=== PATIENT | female | born 1955 | race Caucasian/White ===

== ENCOUNTER 2016-10-30 18:10 | Emergency (ER) | payer OTHER ==
[2016-10-30 18:30] VITALS: BP 160/87; PULSE 78; TEMP 98.1; BMI 27.4
--- NOTE | 2016-10-30 18:40 | PDOC ---
History of Present Illness - General History Source: Patient Exam Limitations: No Limitations - History of Present Illness Initial Comments: 10/30/16 18:51 Patient is a 61 year old female with a significant past medical history of chronic back problems who presents to the ED with right lower extremity pain. Patient states that she developed right groin/ right medial thigh sharp shooting pain 10/10 that radiates down the back of her leg and to the back of her right foot. Patient states that she was recently seen an orthopedist for her right torn meniscus. She denies any recent fall or trauma. Pat PCP - Dr. Morel <Chanell Chavez - Last Filed: 10/30/16 18:51> - General History Source: Patient Exam Limitations: No Limitations <Sabine Wade - Last Filed: 10/31/16 10:52> - General Chief Complaint: Pain, Acute Stated Complaint: LEFT LEG PAIN Time Seen by Provider: 10/30/16 18:16 Past History <Chanell Chavez - Last Filed: 10/30/16 18:51> - Past Medical History Other medical history: glaucoma, back problems, herniated discs - Immunization History Td Vaccination: No - Psycho/Social/Smoking Cessation Hx Anxiety: No Suicidal Ideation: No Smoking Status: No Smoking History: Never smoked Have you smoked in the past 12 months: No Number of Cigarettes Smoked Daily: 0 Information on smoking cessation initiated: No Hx Alcohol Use: No Drug/Substance Use Hx: No Substance Use Type: None <Sabine Wade - Last Filed: 10/31/16 10:52> - Past Medical History Allergies/Adverse Reactions: Allergies Allergy/AdvReac Type Severity Reaction Status Date / Time No Known Allergies Allergy Verified 04/19/16 12:56 Home Medications: Ambulatory Orders Aspirin 81 mg PO HS 09/23/13 Bimatoprost [Lumigan] 1 drop IO HS 01/12/14 Hydrocodone/Acetaminophen [Vicodin 5-300 mg Tablet] 1 each PO QID PRN #15 tablet 01/12/14 Cyclobenzaprine HCl [Flexeril 10 mg] 10 mg PO BID PRN #30 tablet 10/30/16 Ibuprofen [Motrin -] 600 mg PO TID #20 tablet 10/30/16 Review of Systems - Review of Systems Able to Perform ROS?: Yes Comments:: 10/30/16 18:51 GENERAL/CONSTITUTIONAL: No: fever, chills, weakness, loss of appetite. HEAD, EYES, EARS, NOSE AND THROAT: No: change in vision, ear pain, discharge, sore throat, throat swelling. CARDIOVASCULAR: No: chest pain, lightheadedness, palpitations, syncope RESPIRATORY: No: cough, shortness of breath, wheezing, hemoptysis, stridor. GASTROINTESTINAL: No: nausea, vomiting, abdominal cramping, diarrhea, rectal bleeding, constipation. GENITOURINARY: No: dysuria, hematuria, frequency, urgency, flank pain. MUSCULOSKELETAL: +right LE pain No: back pain, neck pain, joint pain, muscle swelling or pain SKIN: No: lesions, pallor, rash or easy bruising. NEUROLOGIC: No: headache, vertigo, paresthesias, weakness ENDOCRINE: No: unexplained weight gain or loss HEMATOLOGIC/LYMPHATIC: No: anemia, easy bleeding, swelling nodes <Chanell Chavez - Last Filed: 10/30/16 18:51> *Physical Exam - Vital Signs Last Vital Signs Temp Pulse Resp BP Pulse Ox 98.1 F 78 18 160/87 97 10/30/16 18:10 10/30/16 18:10 10/30/16 18:10 10/30/16 18:10 10/30/16 18:10 - Physical Exam Comments: 10/30/16 18:51 GENERAL: The patient is in no acute distress. HEAD: Normal with no signs of trauma. EYES: PERRLA, EOMI, sclera anicteric, conjunctiva clear. ENT: Ears normal, nares patent, oropharynx clear without exudates. Moist mucous membranes. NECK: Normal range of motion, supple without lymphadenopathy, JVD, or masses. LUNGS: Breath sounds equal, clear to auscultation bilaterally. No wheezes, and no crackles. HEART:Regular rate and rhythm, normal S1 and S2 without murmur, rub or gallop. ABDOMEN: Soft, nontender, normoactive bowel sounds. No guarding, no rebound. EXTREMITIES: Normal range of motion, no edema. No clubbing or cyanosis. No erythema, or tenderness. NEUROLOGICAL: Cranial nerves II through XII grossly intact. Normal speech. No focal neurological deficits. MUSCULOSKELETAL: Back nontender to palpation, no CVA tenderness SKIN: Warm, Dry, normal turgor, no rashes or lesions noted. <Chanell Chavez - Last Filed: 10/30/16 18:51> - Vital Signs Last Vital Signs Temp Pulse Resp BP Pulse Ox 98.1 F 78 18 160/87 97 10/30/16 18:10 10/30/16 18:10 10/30/16 18:10 10/30/16 18:10 10/30/16 18:10 <Sabine Wade - Last Filed: 10/31/16 10:52> Medical Decision Making - Medical Decision Making 10/30/16 18:38 A portion of this note was documented by scribe services under my direction. I have reviewed the details of the note, within reason, and agree with the documentation with the following case summary and management plan written by me. Nursing documentation reviewed and incorporated into medical decision making 10/30/16 18:56 This is a 61-year-old female with a history of chronic back pain who presents emergency department with severe buttock pain which is radiating to the bottom of her foot. Patient denies falls, trauma, injury of any other kind. Patient denies heavy lifting, patient denies running. Patient states her symptoms started last night. Her pain was so severe that she took oxycodone but states it did not help her pain. She denies fevers or chills. On examination patient has no point tenderness in the hip. Patient has intermittent bouts of severe pain. Will do x-ray hip and pelvis. Will do duplex. (Patient states that she is concerned because she was told that she has a borderline positive in a, and is worried about a DVT. Will do duplex, rule out DVT. Pt given toradol and Flexeril. Pt signed out to Dr. Chen pending duplex <Sabine Wade - Last Filed: 10/31/16 10:52> *DC/Admit/Observation/Transfer - Attestations Scribe Attestion: 10/30/16 18:52 Documentation prepared by NILS Corcoran, acting as medical affairs leader for Sabine Wade MD. <Chanell Chavez - Last Filed: 10/30/16 18:51> <Sabine Wade - Last Filed: 10/31/16 10:52> Diagnosis at time of Disposition: Sciatica - Discharge Dispostion Disposition: HOME Condition at time of disposition: Improved - Prescriptions Prescriptions: Cyclobenzaprine HCl [Flexeril 10 mg] 10 mg PO BID PRN #30 tablet PRN Reason: Pain Ibuprofen [Motrin -] 600 mg PO TID #20 tablet - Referrals Referrals: Alexandra Morel MD [Primary Care Provider] - - Patient Instructions Printed Discharge Instructions: DI for Back Pain With Sciatica Additional Instructions: Return to the emergency department immediately with ANY new, persistent or worsening symptoms including numbness, tingling, weakness, fevers or any other concerns. Take ibuprofen (400mg)/tylenol(650mg) every 6 hours for 2 days. Take the the flexeril as prescribed daily if you still have pain/discomfort. Apply heat to your sore muscles. You MUST call and follow up with your doctor tomorrow for further evaluation of your symptoms. Your emergency department visit is not complete without a followup with your doctor for reevaluation.. Results were discussed with you. Please make sure your doctor reviews the results of your emergency evaluation. Print Language: KINYARWANDA
[2016-10-30] MEDS ORDERED: CYCLOBENZAPRINE HCL 10 MG TABLET (FP) PO ONE (18:46)
[2016-10-30] MEDS ORDERED: KETOROLAC TROMETHAMINE 30 MG/1 ML VIAL IM ONE (18:46)
[2016-10-30] MEDS ORDERED: CYCLOBENZAPRINE HCL 10 MG TABLET (FP) ONE (18:52)
[2016-10-30] MEDS ORDERED: KETOROLAC TROMETHAMINE 30 MG/1 ML VIAL ONE (18:52)
--- NOTE | 2016-10-30 20:10 | PDOC ---
*Physical Exam - Vital Signs Last Vital Signs Temp Pulse Resp BP Pulse Ox 98.1 F 78 18 160/87 97 10/30/16 18:10 10/30/16 18:10 10/30/16 18:10 10/30/16 18:10 10/30/16 18:10 ED Treatment Course - Medications Given in the ED: ED Medications Discontinued Medications Generic Name Dose Route Start Last Admin Trade Name Freq PRN Reason Stop Dose Admin Cyclobenzaprine HCl 10 mg 10/30/16 18:46 10/30/16 18:53 Flexeril - PO 10/30/16 18:47 10 mg ONCE ONE Administration Ketorolac Tromethamine 30 mg 10/30/16 18:46 10/30/16 19:00 Toradol Injection - IM 10/30/16 18:47 30 mg ONCE ONE Administration Medical Decision Making - Medical Decision Making 10/30/16 20:00 The patient signed out to me from Dr. chaim romano of back problems presents with RL extremity pain, r groin pain and medial thigh pain. The patient is s/p toradol/flexeril and awaiting xray and duplex if neg, and pt feeling improved will dc the pt with PMD fu 10/30/16 20:17 pts hip/pelvis and US negative pt feeling improved, but still feeling intermittent spasms of pain in her leg when she is seated suspect her pain is secondary to sciatica based on on the radatiation and worsening wehn she is seated. supportive mangaement at home w/ NSAIDs, muscle relaxant, heat will dc the pt with pmd fu return precautions were discussed I discussed the physical exam findings, ancillary test results and final diagnoses with the patient. I answered all of the patient's questions. The patient was satisfied with the care received and felt comfortable with the discharge plan and treatment plan. The patient will call their primary care physician within 24 hours to arrange follow-up and will return to the Emergency Department with any new, persistent or worsening symptoms. *DC/Admit/Observation/Transfer Diagnosis at time of Disposition: Sciatica Qualifiers: Laterality: right Qualified Code(s): M54.31 - Sciatica, right side - Discharge Dispostion Disposition: HOME Condition at time of disposition: Improved Admit: No - Prescriptions Prescriptions: Cyclobenzaprine HCl [Flexeril 10 mg] 10 mg PO BID PRN #30 tablet PRN Reason: Pain Ibuprofen [Motrin -] 600 mg PO TID #20 tablet - Referrals Referrals: Alexandra Morel MD [Primary Care Provider] - - Patient Instructions Printed Discharge Instructions: DI for Back Pain With Sciatica Additional Instructions: Return to the emergency department immediately with ANY new, persistent or worsening symptoms including numbness, tingling, weakness, fevers or any other concerns. Take ibuprofen (400mg)/tylenol(650mg) every 6 hours for 2 days. Take the the flexeril as prescribed daily if you still have pain/discomfort. Apply heat to your sore muscles. You MUST call and follow up with your doctor tomorrow for further evaluation of your symptoms. Your emergency department visit is not complete without a followup with your doctor for reevaluation.. Results were discussed with you. Please make sure your doctor reviews the results of your emergency evaluation. Print Language: FRISIAN - Post Discharge Activity
[2016-10-30] MEDS ORDERED: diazePAM 5 MG TABLET PO ONE (20:38)
[2016-10-30] MEDS ORDERED: diazePAM 5 MG TABLET ONE (20:39)
== END 2016-10-30 21:11 | disposition home or self-care (01) ==
LOC: FER 18:10
PROC: 3E0333Z Introduction of Anti-inflammatory into Peripheral Vein, Percutaneous Approach (ICD-10-PCS; principal; 2016-10-30)
DX: M54.30 Sciatica, unspecified side (principal); G89.29 Other chronic pain; H40.9 Unspecified glaucoma; Z79.82 Long term (current) use of aspirin
CPT/HCPCS: 73523-TC; 93970-TC; 99283-25

== ENCOUNTER 2017-04-06 16:10 | Emergency (ER) | payer OTHER ==
[2017-04-06 16:30] VITALS: BP 147/89; PULSE 67; TEMP 98.3; BMI 27.1
[2017-04-06 16:59] LABS: PH,URINE 5.5 (4.5-8); URINE APPEARANCE Clear; URINE BILIRUBIN Negative (NEGATIVE); URINE BLOOD Negative (NEGATIVE); URINE GLUCOSE (UA) Negative (NEGATIVE); URINE KETONE Negative (NEGATIVE); URINE LEUK ESTERASE Negative (NEGATIVE); URINE NITRITE Negative (NEGATIVE); URINE PROTEIN Negative (NEGATIVE); URINE UROBILINOGEN 0.2 (0.2-1.0)
--- NOTE | 2017-04-06 16:59 | PDOC ---
History of Present Illness - History of Present Illness Initial Comments: 04/06/17 17:24 Patient is a 61 F who presents to the ER complaining of LLQ abdominal pain for 3 days. She says she first felt the pain when she was on couch and started to stretch her arms above her head and backwards. She has trouble describing her pain but stated it felt almost as a burning - tingling sensation. She says that her pain is intermittent and varies between a 3-8/10 (moderate-severe) on the pain scale. She states twisting and bending makes it worse. She has taken Hydrocodone and (prescribed by her doctor for her back pain) as well as extra strength excedrin and it has helped her pain. She denies nausea, vomiting, diarrhea, fevers, chills, headache or dizziness. She denies recent dysuria, frequency, urgency or hematuria. She denies recent chest pain or shortness of breath. PMHx: enlarged spleen, back pain, borderline lupus, glaucoma, Allergies: seasonal PCP: Alexandra Morel <Emy Muhammad - Last Filed: 04/06/17 17:51> <Melony Sanders - Last Filed: 04/06/17 18:05> - General Chief Complaint: Pain Stated Complaint: LEFT ABD AND FLANK PAIN Time Seen by Provider: 04/06/17 16:27 Past History <mEy Muhammad - Last Filed: 04/06/17 17:51> - Past Medical History Other medical history: GLAUCOMA - Immunization History Td Vaccination: No - Suicide/Smoking/Psychosocial Hx Smoking Status: No Smoking History: Former smoker Have you smoked in the past 12 months: No Number of Cigarettes Smoked Daily: 0 If you are a former smoker, when did you quit?: 1996 Information on smoking cessation initiated: No Hx Alcohol Use: Yes (RARE) Drug/Substance Use Hx: No Substance Use Type: None <Melony Sanders - Last Filed: 04/06/17 18:05> - Past Medical History Allergies/Adverse Reactions: Allergies Allergy/AdvReac Type Severity Reaction Status Date / Time No Known Allergies Allergy Verified 04/06/17 16:20 Home Medications: Ambulatory Orders Aspirin 81 mg PO HS 09/23/13 Bimatoprost [Lumigan] 1 drop IO HS 01/12/14 Review of Systems - Review of Systems Comments:: 04/06/17 17:25 GENERAL/CONSTITUTIONAL: No fever or chills. No weakness. HEAD, EYES, EARS, NOSE AND THROAT: No change in vision. No ear pain or discharge. No sore throat. GASTROINTESTINAL: No nausea, vomiting, diarrhea or constipation. GENITOURINARY: No dysuria, frequency, or change in urination. CARDIOVASCULAR: No chest pain or shortness of breath. RESPIRATORY: No cough, wheezing, or hemoptysis. MUSCULOSKELETAL: +epigastric pain/tenderness +RLQ, LLQ tenderness. No neck or back pain. SKIN: No rash NEUROLOGIC: No headache, vertigo, loss of consciousness, or change in strength/ sensation. ENDOCRINE: No increased thirst. No abnormal weight change. HEMATOLOGIC/LYMPHATIC: No anemia, easy bleeding, or history of blood clots. ALLERGIC/IMMUNOLOGIC: No hives or skin allergy. <Emy Muhammad - Last Filed: 04/06/17 17:51> *Physical Exam - Vital Signs Last Vital Signs Temp Pulse Resp BP Pulse Ox 98.3 F 67 15 147/89 98 04/06/17 16:19 04/06/17 16:19 04/06/17 16:19 04/06/17 16:19 04/06/17 16:19 - Physical Exam Comments: 04/06/17 17:24 GENERAL: Awake, alert, and fully oriented, in no acute distress HEAD: No signs of trauma EYES: PERRLA, EOMI, sclera anicteric, conjunctiva clear ENT: Auricles normal inspection, hearing grossly normal, nares patent, oropharynx clear without exudates. Moist mucosa NECK: Normal ROM, supple, no lymphadenopathy, JVD, or masses LUNGS: Breath sounds equal, clear to auscultation bilaterally. No wheezes, and no crackles HEART: Regular rate and rhythm, normal S1 and S2, no murmurs, rubs or gallops ABDOMEN: +RLQ tenderness +LLQ tendernessc+Epigastric Point tenderness. Soft, normoactive bowel sounds. No rebound. No masses EXTREMITIES: Normal range of motion, no edema. No clubbing or cyanosis. No cords, erythema, or tenderness NEUROLOGICAL: Cranial nerves II through XII grossly intact. Normal speech, normal gait SKIN: Warm, Dry, normal turgor, no rashes or lesions noted. <Emy Muhammad - Last Filed: 04/06/17 17:51> - Vital Signs Last Vital Signs Temp Pulse Resp BP Pulse Ox 98.3 F 67 15 147/89 98 04/06/17 16:19 04/06/17 16:19 04/06/17 16:19 04/06/17 16:19 04/06/17 16:19 <Melony Sanders - Last Filed: 04/06/17 18:05> ED Treatment Course - LABORATORY CBC & Chemistry Diagram: 04/06/17 17:20 04/06/17 17:20 - ADDITIONAL ORDERS Additional order review: Laboratory Results 04/06/17 16:50 Urine Color Yellow Urine Appearance Clear Urine pH 5.5 Ur Specific [place] 1.020 Urine Protein Negative Urine Glucose (UA) Negative Urine Ketones Negative Urine Blood Negative Urine Nitrite Negative Urine Bilirubin Negative Urine Urobilinogen 0.2 Ur Leukocyte Esterase Negative <Emy Muhammad - Last Filed: 04/06/17 17:51> - LABORATORY CBC & Chemistry Diagram: 04/06/17 17:20 04/06/17 17:20 <Melony Sanders - Last Filed: 04/06/17 18:05> Medical Decision Making - Medical Decision Making 04/06/17 17:57 Pt now providing additional history. She states she recently had two mammograms , and she is certain the pain started after the second one. She also notes that they had to get multiple angles, as the lesion they were attempting to image was very deep. She did not initially remember about the mammogram. Labs are wnl , and the splenomegaly is known. No additional workup is necessary. <Melony Sanders - Last Filed: 04/06/17 18:05> *DC/Admit/Observation/Transfer - Attestations Scribe Attestion: 04/06/17 17:28 Documentation prepared by Emy Muhammad, acting as medical coding manager for Melony Sanders MD. <Emy Muhammad - Last Filed: 04/06/17 17:51> - Discharge Dispostion Admit: No <Melony Sanders - Last Filed: 04/06/17 18:05> Diagnosis at time of Disposition: Chest wall pain - Discharge Dispostion Disposition: HOME Condition at time of disposition: Stable - Referrals Referrals: Alexandra Morel MD [Primary Care Provider] -
[2017-04-06 17:00] LABS: URINE COLOR YELLOW
[2017-04-06 17:40] LABS: BASOPHIL 0.7 % (0-2.0); EOSINOPHIL 1.9 % (0-4.5); MCHC 34.1 g/dl (32.0-36.0); MEAN CELL VOLUME 85.1 fl (80-96); MEAN PLT VOLUME 8.9 fl (7.5-11.1); NEUTROPHILS 72.9 % (42.8-82.8); PLATELET COUNT 276 K/MM3 (134-434); RDW 12.4 % (11.6-15.6); WHITE BLOOD COUNT 8.7 K/mm3 (4.0-10.8)
[2017-04-06 17:57] LABS: ALBUMIN 4.3 g/dl (3.5-5.0); ALK PHOS 64 U/L (32-92); ANION GAP 9 (8-16); BILIRUBIN,TOTAL 0.8 mg/dl (0.2-1.0); CALCIUM 9.7 mg/dl (8.4-10.2); CO2 28 mmol/L (22-28); CREATININE 0.7 mg/dl (0.6-1.3); GLUCOSE,RANDOM 106 mg/dl (74-106); SGOT/AST 21 U/L (10-42); SGPT/ALT 26 U/L (10-40); TOT PROT 7.6 g/dl (6.4-8.3)
[2017-04-06] MEDS ORDERED: KETOROLAC TROMETHAMINE 30 MG/1 ML VIAL IVPUSH ONE (18:06)
[2017-04-06] MEDS ORDERED: KETOROLAC TROMETHAMINE 30 MG/1 ML VIAL ONE (18:07)
== END 2017-04-06 18:19 | disposition home or self-care (01) ==
LOC: FER 16:10
PROC: 3E0333Z Introduction of Anti-inflammatory into Peripheral Vein, Percutaneous Approach (ICD-10-PCS; principal; 2017-04-06)
DX: R07.89 Other chest pain (principal)
CPT/HCPCS: 36415; 80053; 81003; 83690; 85025; 99283-25

== ENCOUNTER → 2017-07-24 | Day surgery (SDC) | payer OTHER | END | disposition home or self-care (01) | LOC: FRADUS-SUR 12:02 | PROVIDERS: ATTEND Surgery | PROC: 0HBT3ZX Excision of Right Breast, Percutaneous Approach, Diagnostic (ICD-10-PCS; principal; 2017-07-24) | DX: N60.31 Fibrosclerosis of right breast (principal); N63.10 Unspecified lump in the right breast, unspecified quadrant; N60.81 Other benign mammary dysplasias of right breast | CPT/HCPCS: 19085; 77065-TC; A4648; C1887 ==